=== PATIENT | male | born 1970 | race Two or more races ===

== ENCOUNTER 2021-08-03 04:40 | Day surgery (SDC) | payer OTHER ==
[2021-07-29 14:28] VITALS: BMI 44.9
[2021-08-03] MEDS ORDERED: BUPIVACAINE HCL/PF 0.75% 10 ML VIAL PNB ONE ×2 (15:15→15:34)
[2021-08-03] MEDS ORDERED: LIDOCAINE HCL/PF 1% SDV 5ML VIAL ONE (15:16)
[2021-08-03] MEDS ORDERED: LIDOCAINE HCL 1% PRESERVATIVE FREE - 30ML VIAL IJ ONE ×3 (15:16→15:34)
[2021-08-03] MEDS ORDERED: IOHEXOL 180 MG/1 ML ML IJ ONE ×3 (15:16→15:34)
[2021-08-03] MEDS ORDERED: BUPIVACAINE HCL/PF 0.75% 10 ML VIAL ONE (15:19)
[2021-08-03 16:21] VITALS: TEMP 97.7
[2021-08-03 16:38] VITALS: BP 153/91; PULSE 94
== END 2021-08-03 16:40 | disposition home or self-care (01) ==
LOC: JASU-SURG 04:40
PROVIDERS: ATTEND Pain Medicine Pain Medicine
PROC: BR16YZZ Fluoroscopy of Lumbar Facet Joint(s) using Other Contrast (ICD-10-PCS; 2021-08-03)
PROC: 3E0T3BZ Introduction of Anesthetic Agent into Peripheral Nerves and Plexi, Percutaneous Approach (ICD-10-PCS; 2021-08-03)
PROC: BR16YZZ Fluoroscopy of Lumbar Facet Joint(s) using Other Contrast (ICD-10-PCS; 2021-08-03)
PROC: 3E0T3BZ Introduction of Anesthetic Agent into Peripheral Nerves and Plexi, Percutaneous Approach (ICD-10-PCS; principal; 2021-08-03 16:30)
DX: M47.816 Spondylosis without myelopathy or radiculopathy, lumbar region (principal)
CPT/HCPCS: 76000-TC-FY

== ENCOUNTER → 2021-09-14 | Day surgery (SDC) | payer OTHER ==
[2021-09-10 09:31] VITALS: BMI 44.9
[~2021-09-14] MED LIST: BUPIVACAINE HCL/PF 0.75% 10 ML VIAL NR ONE; BUPIVACAINE HCL/PF 0.75% 10 ML VIAL ONE; LIDOCAINE HCL 1% PRESERVATIVE FREE - 30ML VIAL IJ ONE; LIDOCAINE HCL/PF 1% SDV 5ML VIAL ONE
[2021-09-14 11:49] VITALS: BP 125/84; PULSE 83; TEMP 97.3
== END | disposition home or self-care (01) ==
LOC: JASU-SURG 04:29
PROVIDERS: ATTEND Pain Medicine Pain Medicine
PROC: 3E0T33Z Introduction of Anti-inflammatory into Peripheral Nerves and Plexi, Percutaneous Approach (ICD-10-PCS; 2021-09-14)
PROC: 3E0T3BZ Introduction of Anesthetic Agent into Peripheral Nerves and Plexi, Percutaneous Approach (ICD-10-PCS; principal; 2021-09-14 10:00)
DX: M47.816 Spondylosis without myelopathy or radiculopathy, lumbar region (principal)
CPT/HCPCS: 76000-TC-FY